=== PATIENT | male | born 1980 | race Native Hawaiian/Other Pacific Islander ===

== ENCOUNTER 2018-01-14 20:59 | Emergency (ER) | payer OTHER ==
[~2018-01-14] VITALS: Ht 170.2 cm; Wt 95.3 kg
[2018-01-14 22:59] LABS: PLATELET COUNT 313 K/uL (142-355)
[2018-01-15 00:05] VITALS: BP 142/84; TEMP 98.6
== END 2018-01-15 00:05 | disposition home or self-care (01) ==
LOC: ED 20:59
PROVIDERS: Specialist
DX: S81.851A Open bite, right lower leg, initial encounter (principal); W54.0XXA Bitten by dog, initial encounter
CPT/HCPCS: 36415; 80048; 85027; 85651; 90471; 90715; 99283

== ENCOUNTER 2018-01-19 11:14 | Inpatient (IN) | payer OTHER ==
[~2018-01-19] VITALS: Ht 170.2 cm; Wt 96.8 kg
[2018-01-19 11:22] VITALS: BP 153/97; TEMP 98
[2018-01-19 13:04] LABS: PLATELET COUNT 321 K/uL (142-355)
[2018-01-19 13:30] VITALS: BP 148/92
[2018-01-19 15:31] VITALS: BP 128/83; TEMP 98.9; Ht 170.2 cm; Wt 96.8 kg
[2018-01-19 20:00] VITALS: BP 131/75; TEMP 98.2
[2018-01-20] VITALS: BP 107/60; BP 111/66; TEMP 97.8; TEMP 98.5
[2018-01-20 04:00] VITALS: BP 104/59; TEMP 97.7
[2018-01-20 05:45] LABS: PLATELET COUNT 291 K/uL (142-355)
[2018-01-20 06:13] LABS: POTASSIUM 3.7 mmol/L (3.6-5.2)
[2018-01-20 08:00] VITALS: BP 116/65; TEMP 98.5
[2018-01-20 12:00] VITALS: BP 121/66; TEMP 97.9
[2018-01-20 16:00] VITALS: BP 122/77; TEMP 97.6
[2018-01-20 20:00] VITALS: BP 114/71; TEMP 97.9
[2018-01-21] VITALS: BP 122/62; TEMP 97.8
[2018-01-21 04:00] VITALS: BP 151/52; TEMP 98.8
[2018-01-21 05:20] LABS: PLATELET COUNT 310 K/uL (142-355)
[2018-01-21 08:00] VITALS: BP 123/79; TEMP 97.7
[2018-01-21] MEDS ORDERED: CEPH500C20 PO (11:28)
[2018-01-21 12:00] VITALS: BP 114/84; TEMP 98
--- NOTE | 2018-01-21 12:23 | NUR ---
19G IV TO THE LEFT WRIST D/C AT THIS TIME WITH TIP INTACT. PT TOLERATED WELL. DISCHARGE INSTRUCTIONS WERE GIVEN TO PT. PT VERBALIZED UNDERSTANDING. PT IS AWAITING RIDE AT THIS TIME.
--- NOTE | 2018-01-21 12:51 | NUR ---
PT D/C VIA WHEELCHAIR AT THIS TIME
== END 2018-01-21 12:50 | disposition home or self-care (01) | DRG 605 ==
LOC: ED 11:14 → MED/SURG 14:00
PROVIDERS: ADMIT Family Medicine
DX: S81.851A Open bite, right lower leg, initial encounter (principal); L03.115 Cellulitis of right lower limb; F17.210 Nicotine dependence, cigarettes, uncomplicated
CPT/HCPCS: 36415; 80048; 80053; 80202; 85027; 99283; J0295; J1885; J2270; J3370